=== PATIENT | male | born 1945 | race African-American/Black ===

== ENCOUNTER 2017-12-03 18:29 | Emergency (ER) | payer BC, MEDICARE ==
[~2017-12-03] VITALS: Ht 177.8 cm; Wt 95.5 kg
[2017-12-03] MEDS ORDERED: LEVO75 PO (18:33)
[2017-12-03] MEDS ORDERED: LIDOCAINE HCL/PF 2% 5 ML VIAL INJ ONE (20:30)
[2017-12-03] MEDS ORDERED: LIDOCAINE HCL/PF 1% 2 ML VIAL IM ONE (20:30)
[2017-12-03] MEDS ORDERED: MORPHINE SULFATE 10 MG/ML SYRINGE IM ONE (20:30)
[2017-12-03] MEDS ORDERED: CefTRIAXone SODIUM 1 GM/VIAL IM ONE (20:30)
[2017-12-03] MEDS ORDERED: IBUPROFEN 600 MG TABLET PO ONE (21:15)
[2017-12-03] MEDS ORDERED: ACETAMINOPHEN 325 MG TABLET PO ONE (21:15)
[2017-12-03 21:30] VITALS: BP 147/75
== END 2017-12-03 21:33 | disposition home or self-care (01) ==
LOC: EMS 18:29
DX: S62.632A Displaced fracture of distal phalanx of right middle finger, initial encounter for closed fracture (principal); S61.212A Laceration without foreign body of right middle finger without damage to nail, initial encounter; Z79.899 Other long term (current) drug therapy; W45.8XXA Other foreign body or object entering through skin, initial encounter; Y93.89 Activity, other specified; Y92.69 Other specified industrial and construction area as the place of occurrence of the external cause; Y99.8 Other external cause status
CPT/HCPCS: 12001; 73130; 96372; 99284; J0696; J3490 ×2